=== PATIENT | male | born 1970 | race Caucasian/White ===

== ENCOUNTER 2018-06-05 23:19 | Emergency (ER) | payer OTHER | END 2018-06-06 01:47 | disposition home or self-care (01) | LOC: FTE 06-06 01:47 | DX: M79.671 Pain in right foot (principal); B35.3 Tinea pedis; E11.9 Type 2 diabetes mellitus without complications; F17.210 Nicotine dependence, cigarettes, uncomplicated | CPT/HCPCS: 73630; 99283-25 ==

== ENCOUNTER 2018-06-19 20:34 | Emergency (ER) | payer OTHER ==
[2018-06-19] MEDS: IBUPROFEN 600 MG TAB PO (23:32)
== END 2018-06-20 00:29 | disposition home or self-care (01) ==
LOC: FTE 06-20 00:29
DX: R60.9 Edema, unspecified (principal); E11.9 Type 2 diabetes mellitus without complications; F17.210 Nicotine dependence, cigarettes, uncomplicated
CPT/HCPCS: 93971; 99284-25

== ENCOUNTER 2018-11-25 18:31 | Emergency (ER) | payer OTHER ==
[2018-11-25] MEDS: DEXAMETHASONE 10 MG/ML 1 ML INJ IM (21:39)
[2018-11-25] MEDS: CIPROFLOXACIN 0.3% 2.5 ML OPH BOTH EYES (21:44)
[2018-11-25] MEDS: FLUORESCEIN STRIP BOTH EYES (21:47)
[2018-11-25] MEDS: FLUORESCEIN STRIP LEFT EYE (21:47)
== END 2018-11-25 22:02 | disposition home or self-care (01) ==
LOC: FTE 18:31
DX: H57.13 Ocular pain, bilateral (principal); E11.9 Type 2 diabetes mellitus without complications; F17.210 Nicotine dependence, cigarettes, uncomplicated
CPT/HCPCS: 96372; 99284-25